=== PATIENT | female | born 1955 | race Caucasian/White ===

== ENCOUNTER 2024-05-07 18:43 | Emergency (ER) | payer MEDICARE ==
[~2024-05-07] VITALS: Ht 162.6 cm; Wt 80.7 kg
[2024-05-07] MEDS ORDERED: EZETIMIBE10 MG PO (19:02)
[2024-05-07] MEDS ORDERED: OZEMPIC0.25 MG/02 SQ (19:03)
[2024-05-07] MEDS ORDERED: METOCLOPRAMIDE HCL 10 MG/2 ML SDV IV ONE (19:15)
[2024-05-07] MEDS ORDERED: SODIUM CHLORIDE 0.9% 1,000 ML IV ONE (19:15)
[2024-05-07 19:17] LABS: BASOPHILS 4.8 % (0-2); EOSINOPHILS 1.1 % (0-6); HEMATOCRIT 46.2 % (35.0-50.0); HEMOGLOBIN 15.7 g/dL (12.0-18.0); LYMPHOCYTES 23.6 % (24-44); MCH 32.5 (27-36); MCV 95.6 fl (81-99); MONOCYTES 8.8 % (0-12); NEUTROPHILS 61.7 % (39-80); PLATELET COUNT 275 K/uL (140-440); RBC 4.83 M/ul (4.3-5.7); RDW 12.7 (10.5-15.0)
[2024-05-07 19:32] LABS: ALBUMIN 4.5 g/dL (3.4-5.0); ALBUMIN/GLOBULIN RATIO 1.15 (1.1-2.4); ANION GAP 18.8 (7-21); BILIRUBIN, TOTAL 1.1 ng/dL (0.2-1.0); BUN/CREATININE RATIO 32.91 (6.0-28.6); CALCIUM 9.8 mg/dL (8.5-10.1); CREATININE, SERUM 0.79 mg/dL (0.55-1.02); POTASSIUM 3.8 mmol/L (3.5-5.1); PROTEIN, TOTAL 8.4 g/dL (6.4-8.2)
[2024-05-07] MEDS ORDERED: REGLAN10 MG PO (19:48)
[2024-05-07] MEDS ORDERED: LACTULOSE10 GM/152 PO (19:49)
[2024-05-07 20:00] VITALS: BP 151/115
[2024-05-07] MEDS ORDERED: bisacodyL 5 MG TABEC PO ONE (20:00)
== END 2024-05-07 20:24 | disposition home or self-care (01) ==
LOC: ED 18:43
PROVIDERS: Family Medicine
DX: K59.00 Constipation, unspecified (principal); E78.5 Hyperlipidemia, unspecified; Z88.0 Allergy status to penicillin; Z79.85 Long-term (current) use of injectable non-insulin antidiabetic drugs; Z79.899 Other long term (current) drug therapy
CPT/HCPCS: 36415; 74018; 80053; 83690; 85025; 96361; 96374; 99284-25; J2765; J7030